=== PATIENT | female | born 1995 | race Caucasian/White ===

== ENCOUNTER 2018-09-02 13:05 | Emergency (ER) | payer OTHER ==
[~2018-09-02] VITALS: Ht 162.6 cm; Wt 78.0 kg
[2018-09-02 13:13] VITALS: BP 126/81
--- NOTE | 2018-09-02 13:25 | PHYS DOC ---
Adult General Chief Complaint Chief Complaint: NAUSEA/VOMITING/DIARRHA HPI HPI 23-year-old female presents to ER with complaints of flulike illness since late Sunday and worsening symptoms on Sunday. Patient states she has had decreased appetite, generalized fatigue, bodyaches, and nausea. She denies any OTC meds today for pain/fever. She reports co-worker on Sunday was dx'd with the flu over the weekend. She denies V/D episodes today. LMP intermittent/continuous since Mar. after of her dgtr- IUD in place. No concerns for preg. Review of Systems Review of Systems Constitutional: Reports feverish w/chills and generalized fatigue Eyes: Denies change in visual acuity, redness, or eye pain [] HENT: Denies nasal congestion or sore throat [] Respiratory: Denies cough or shortness of breath [] Cardiovascular: No additional information not addressed in HPI [] GI: Denies abdominal pain, V/D or bloody stools. Reports intermittent nausea and decreased appetite : Denies urinary sxs Musculoskeletal: Reports generalized body aches- denies neck stiffness Integument: Denies rash or skin lesions [] Neurologic: Denies headache, focal weakness or sensory changes [] All other systems were reviewed and found to be within normal limits, except as documented in this note. Current Medications Current Medications Current Medications Medications (Trade) Dose Ordered Sig/Manny Start Time Stop Time Status Last Admin Dose Admin Ibuprofen (Motrin) 600 mg 1X ONCE 09/02/18 13:30 09/02/18 13:31 DC 09/02/18 13:27 600 MG Allergies Allergies Allergies Coded Allergies Type Severity Reaction Last Updated Verified No Known Drug Allergies 09/02/18 No Physical Exam Physical Exam Constitutional: Well developed, well nourished, no acute distress, non-toxic appearance. Flushed facial skin- no diaphoresis HENT: Normocephalic, atraumatic, bilateral ears normal, oropharynx moist, nose normal. [] Eyes: Pupils equal, conjunctiva normal, no discharge. [] Neck: Normal range of motion, no tenderness, supple, no stridor. [] Cardiovascular:Heart rate regular rhythm, no murmur [] Lungs & Thorax: Bilateral breath sounds clear to auscultation. Resp. equal/ nonlabored Abdomen: Bowel sounds normal, soft, no tenderness, no masses, no pulsatile masses. [] Skin: Warm, dry, no erythema, no rash. [] Back: No tenderness, no CVA tenderness. [] Extremities: No tenderness, no cyanosis, no clubbing, ROM intact, no edema. [] Neurologic: Alert and oriented X 3, normal motor function, normal sensory function, no focal deficits noted. [] Psychologic: Affect normal, judgement normal, mood normal. [] Current Patient Data Vital Signs Vital Signs Date Time Temp Pulse Resp B/P (MAP) Pulse Ox O2 Delivery O2 Flow Rate FiO2 09/02/18 13:13 99.2 104 20 126/81 (96) 98 Room Air 99.2 Lab Values Laboratory Tests Test 09/02/18 13:23 Influenza Type A Antigen Negative (NEGATIVE) Influenza Type B Antigen Negative (NEGATIVE) EKG EKG [] Radiology/Procedures Radiology/Procedures [] Course & Med Decision Making Course & Med Decision Making Pertinent Labs reviewed. (See chart for details) 1358: Patient was evaluated in the ER for complaints of flulike illness. She had been exposed to a coworker who tested positive of the weekend and also is a nurse in the hospital. Patient had negative flu test. She was provided with dose of ibuprofen while in the ER. Patient remains nontoxic in appearance with stable vital signs. She was afebrile. Discussed home discharge plan with education on symptomatic treatment for flulike illness. Patient to follow-up with primary care physician if symptoms persist or with concerns. Dragon Disclaimer Dragon Disclaimer This electronic medical record was generated, in whole or in part, using a voice recognition dictation system. Departure Departure Impression: Primary Impression: Flu-like symptoms Disposition: HOME, SELF-CARE Condition: STABLE Patient Instructions: Viral Syndrome Additional Instructions: Drink plenty of fluids. Tylenol and ibuprofen as needed for pain/fever as directed on container. If symptoms persist follow-up with primary doctor for re-evaluation. Take your nausea medication prescription as prescribed. CARLOS TURNER APRN Sep 02, 2018 13:25
[2018-09-02] MEDS ORDERED: IBUPROFEN 600 MG TABLET. PO ONE (13:30)
[2018-09-02 13:48] LABS: INFLUENZA A PATIENT NEGATIVE (NEGATIVE); INFLUENZA B PATIENT NEGATIVE (NEGATIVE)
== END 2018-09-02 13:30 | disposition home or self-care (01) ==
LOC: ER 13:05
DX: R53.83 Other fatigue (principal); M79.10 Myalgia, unspecified site; R11.0 Nausea
CPT/HCPCS: 87804; 99283

== ENCOUNTER → 2020-02-16 | Outpatient (CLI) | payer OTHER | END | disposition home or self-care (01) | LOC: LAB 14:07 | PROVIDERS: ATTEND Internal Medicine Pulmonary Disease | DX: O21.9 Vomiting of pregnancy, unspecified (principal); Z3A.17 17 weeks gestation of pregnancy; Z20.828 Contact with and (suspected) exposure to other viral communicable diseases | CPT/HCPCS: U0003-CS ==